=== PATIENT | female | born 1940 | race Caucasian/White ===

== ENCOUNTER 2017-07-07 21:00 | Inpatient (IN) | payer OTHER ==
[~2017-07-07] VITALS: Ht 167.6 cm; Wt 72.6 kg
[2017-07-07 21:08] VITALS: Ht 167.6 cm; Wt 72.6 kg
[2017-07-07 23:02] LABS: PLATELET COUNT 222 x10^3mcL (130-400); RED CELL DISTRIBUTION WIDTH 13.3 % (11.5-14.5)
[2017-07-07 23:08] LABS: BASOPHIL % 0 % (0-2)
[2017-07-07 23:19] LABS: CALCIUM 9.1 mg/dL (8.5-10.1); CARBON DIOXIDE 27.7 mmol/L (21-32); CHLORIDE SERUM 99 mmol/L (98-107); CREATININE SERUM 0.8 mg/dL (0.6-1.0); GLUCOSE SERUM 117 mg/dL (74-106); POTASSIUM SERUM 4.5 mmol/L (3.5-5.1); SODIUM SERUM 132 mmol/L (136-145)
[2017-07-07 23:24] LABS: ALBUMIN 3.4 g/dL (3.4-5.0); ALKALINE PHOSPHATASE 77 U/L (46-116); ALT/SGPT 29 U/L (14-59); AST/SGOT 21 U/L (15-37); BILIRUBIN TOTAL 0.4 mg/dL (0.20-1.00); TOTAL PROTEIN, SERUM 7.5 g/dL (6.4-8.2)
[2017-07-08] VITALS (7 sets, daily range): BP systolic 100–128; BP diastolic 33–76
[2017-07-08] MEDS ORDERED: ATENOLOL25 MG PO (00:01)
[2017-07-08] MEDS ORDERED: RESTASIS0.051 OP (00:02)
[2017-07-08] MEDS ORDERED: LEVOXYL0.088 MG PO (00:02)
[2017-07-08] MEDS ORDERED: CLONAZEPAM0.5 M2 PO (00:02)
[2017-07-08] MEDS ORDERED: NITROFURANTOIN100 MG PO (00:16)
[2017-07-08 00:24] LABS: UA SPECIFIC GRAVITY <=1.005 (1.005-1.035); microscopic required? YES; urine erythrocyte NEGATIVE (NEGATIVE)
[2017-07-08 02:11] LABS: T3 TOTAL 0.78 ng/mL
[2017-07-08 02:12] LABS: MAGNESIUM 1.9 mg/dL (1.8-2.4)
[2017-07-08 02:22] LABS: FREE T4 1.35 ng/dL (0.76-1.46); FREE THYROXINE INDEX 3.6 ug/dL (1.4-4.5); T4(THYROXINE) 9.2 ug/dL (4.7-13.3)
[2017-07-09 05:44] VITALS: BP 115/49
[2017-07-09 07:49] LABS: BASOPHIL % 0.1 % (0-2); PLATELET COUNT 196 x10^3mcL (130-400); RED CELL DISTRIBUTION WIDTH 13.3 % (11.5-14.5)
[2017-07-09 08:20] LABS: CALCIUM 8.5 mg/dL (8.5-10.1); CARBON DIOXIDE 27.9 mmol/L (21-32); CHLORIDE SERUM 106 mmol/L (98-107); CREATININE SERUM 0.7 mg/dL (0.6-1.0); GLUCOSE SERUM 93 mg/dL (74-106); POTASSIUM SERUM 3.9 mmol/L (3.5-5.1); SODIUM SERUM 141 mmol/L (136-145)
[2017-07-09 15:42] VITALS: BP 115/49
[2017-07-09] MEDS ORDERED: ZESTRIL5 MG PO (15:47)
[2017-07-09] MEDS ORDERED: LIPI10 PO (15:47)
[2017-07-09] MEDS ORDERED: LAC PO (16:00)
[2017-07-09] MEDS ORDERED: MAC100 PO (16:00)
[2017-07-09 16:57] VITALS: BP 139/54
== END 2017-07-09 17:04 | disposition home or self-care (01) | DRG 690 ==
LOC: ED 21:00 → DU 23:55
PROVIDERS: Emergency Medicine; Family Medicine
DX: N39.0 Urinary tract infection, site not specified (principal); E87.0 Hyperosmolality and hypernatremia; K21.9 Gastro-esophageal reflux disease without esophagitis; E03.9 Hypothyroidism, unspecified; I10 Essential (primary) hypertension; E78.5 Hyperlipidemia, unspecified; F41.9 Anxiety disorder, unspecified; E11.9 Type 2 diabetes mellitus without complications; I34.1 Nonrheumatic mitral (valve) prolapse; Z87.440 Personal history of urinary (tract) infections; Z88.6 Allergy status to analgesic agent; Z88.0 Allergy status to penicillin; Z88.2 Allergy status to sulfonamides; Z88.1 Allergy status to other antibiotic agents; Z88.8 Allergy status to other drugs, medicaments and biological substances; Z79.899 Other long term (current) drug therapy; Z90.89 Acquired absence of other organs; Z90.710 Acquired absence of both cervix and uterus
CPT/HCPCS: 83880; 84439; A9500; J2785; J7030; Q0092

== ENCOUNTER 2018-08-12 18:53 | Inpatient (IN) | payer OTHER ==
[~2018-08-12] VITALS: Ht 167.6 cm; Wt 71.2 kg
[~2018-08-12 18:53] MED LIST: ATENOLOL25 MG PO; CLONAZEPAM0.5 M2 PO; LAC PO; LEVOXYL0.088 MG PO; LIPI10 PO; MAC100 PO; NITROFURANTOIN100 MG PO; RESTASIS0.051 OP; ZESTRIL5 MG PO
[2018-08-12 18:57] VITALS: Ht 167.6 cm; Wt 71.2 kg
[2018-08-12 19:47] LABS: BASOPHIL % 0.1 % (0-2); PLATELET COUNT 196 x10^3mcL (130-400); RED CELL DISTRIBUTION WIDTH 12.9 % (11.5-14.5)
[2018-08-12 19:54] LABS: CALCIUM 8.4 mg/dL (8.5-10.1); CARBON DIOXIDE 27.5 mmol/L (21-32); CHLORIDE SERUM 90 mmol/L (98-107); CREATININE SERUM 0.8 mg/dL (0.6-1.0); GLUCOSE SERUM 97 mg/dL (74-106); POTASSIUM SERUM 3.8 mmol/L (3.5-5.1); SODIUM SERUM 126 mmol/L (136-145)
[2018-08-12 19:59] LABS: ALBUMIN 3.5 g/dL (3.4-5.0); ALKALINE PHOSPHATASE 76 U/L (46-116); ALT/SGPT 20 U/L (14-59); AST/SGOT 22 U/L (15-37); BILIRUBIN TOTAL 0.7 mg/dL (0.20-1.00); CHOLESTEROL 208 mg/dL (<200); HDL CHOLESTEROL 67 mg/dL (40-60); LIPASE 126 IU/L (73-393); MAGNESIUM 1.6 mg/dL (1.8-2.4); PHOSPHOROUS 3.2 mg/dL (2.5-4.9); TOTAL PROTEIN, SERUM 7.5 g/dL (6.4-8.2)
[2018-08-12 21:13] LABS: UA SPECIFIC GRAVITY <=1.005 (1.005-1.035); microscopic required? YES; urine erythrocyte NEGATIVE (NEGATIVE)
[2018-08-12] MEDS ORDERED: LEVO-T88 MCG PO (21:57)
[2018-08-12 23:09] VITALS: BP 116/44
[2018-08-13 05:02] VITALS: BP 103/50
[2018-08-13 06:17] LABS: BASOPHIL % 0.1 % (0-2); PLATELET COUNT 172 x10^3mcL (130-400); RED CELL DISTRIBUTION WIDTH 13.1 % (11.5-14.5)
[2018-08-13 06:33] LABS: CALCIUM 8.3 mg/dL (8.5-10.1); CARBON DIOXIDE 28.4 mmol/L (21-32); CHLORIDE SERUM 105 mmol/L (98-107); CREATININE SERUM 0.8 mg/dL (0.6-1.0); GLUCOSE SERUM 96 mg/dL (74-106); POTASSIUM SERUM 4.3 mmol/L (3.5-5.1); SODIUM SERUM 139 mmol/L (136-145)
[2018-08-13 09:00] VITALS: BP 123/50; BP 144/73
[2018-08-13 11:04] VITALS: BP 123/50
[2018-08-13 12:46] VITALS: BP 106/34
== END 2018-08-13 13:35 | disposition home or self-care (01) | DRG 690 ==
LOC: ED 18:53 → DU 21:42
PROVIDERS: Emergency Medicine; ADMIT Internal Medicine
DX: N39.0 Urinary tract infection, site not specified (principal); E87.1 Hypo-osmolality and hyponatremia; E86.0 Dehydration; E83.42 Hypomagnesemia; G62.9 Polyneuropathy, unspecified; E03.9 Hypothyroidism, unspecified; M19.90 Unspecified osteoarthritis, unspecified site; Z68.25 Body mass index [BMI] 25.0-25.9, adult
CPT/HCPCS: 87046; 87046-59; J1956; J3475; J7030; Q0092

== ENCOUNTER 2020-01-20 07:00 | Emergency (ER) | payer OTHER ==
[~2020-01-20] VITALS: Ht 167.6 cm; Wt 72.1 kg
[~2020-01-20 07:00] MED LIST changes: +LEVO-T88 MCG PO
[2020-01-20 07:42] VITALS: Ht 167.6 cm; Wt 72.1 kg
[2020-01-20 08:21] VITALS: BP 128/52
== END 2020-01-20 08:21 | disposition home or self-care (01) ==
LOC: ED 07:00
DX: L25.1 Unspecified contact dermatitis due to drugs in contact with skin (principal); Z88.0 Allergy status to penicillin; Z88.2 Allergy status to sulfonamides; Z88.6 Allergy status to analgesic agent; Z91.018 Allergy to other foods